=== PATIENT | female | born 1995 | race Two or more races ===

== ENCOUNTER 2017-08-20 12:34 | Emergency (ER) | payer MEDICAID ==
[~2017-08-20] VITALS: Ht 160 cm; Wt 63.5 kg
--- NOTE | 2017-08-20 13:39 | NUR ---
PT IN BED WATCHING TV W/ A VISITOR. PT STATES 7/10 BILATERAL PELVIC PAIN X 2 DAYS. PT STATES USING 7 PADS PER DAY. CURRENTLY WAITING FOR MD CONSULT. WILL CONTINUE TO MONITOR. AWAITING MEDICAL ORDERS.
[2017-08-20] MEDS ORDERED: ACETAMINOPHEN 325 MG TABLET PO ONE (14:11)
[2017-08-20] MEDS ORDERED: IV NS 1000 ML 1,000 ML IV ONE (14:15)
[2017-08-20] MEDS ORDERED: ONDANSETRON IV *ER 4 MG/2 ML VIAL IV ONE (14:15)
[2017-08-20 14:38] LABS: BASOPHILS % (AUTO) 0.4 % (0.0-2.0); EOSINOPHILS # (AUTO) 0.2 K/uL (0.0-0.7); EOSINOPHILS % (AUTO) 1.7 % (0.0-7.0); HEMATOCRIT 37.9 % (31.2-41.9); LYMPHOCYTES # (AUTO) 2.2 K/uL (20.0-40.0); LYMPHOCYTES % (AUTO) 22.9 % (20.5-74.5); MEAN CORPUSCULAR HEMOGLOBIN 32.7 uug (24.7-32.8); MEAN CORPUSCULAR HGB CONC 34 g/dL (32.3-35.6); MEAN CORPUSCULAR VOLUME 94.9 fL (75.5-95.3); MONOCYTES # (AUTO) 0.5 K/uL (2.0-10.0); MONOCYTES % (AUTO) 5.6 % (0-11); NEUTROPHILS # (AUTO) 6.5 K/uL (1.8-8.9); NEUTROPHILS % (AUTO) 69.4 % (31.5-64.5); PLATELET COUNT (AUTO) 275 K/uL (179-408); RED BLOOD CELL COUNT(AUTO) 3.99 MIL/uL (3.63-4.92); WHITE BLOOD COUNT (AUTO) 9.4 K/uL (3.8-11.8)
[2017-08-20 14:40] LABS: CREATININE 0.7 mg/dL (0.6-1.3); POTASSIUM 3.8 mmol/L (3.5-5.1)
[2017-08-20 14:46] LABS: BILIRUBIN,TOTAL 0.3 mg/dL (0.2-1.0); TOTAL PROTEIN, SERUM 7.7 g/dL (6.4-8.2)
[2017-08-20] MEDS ORDERED: ONDANSETRON 4 MG/2 ML VIAL ONE (14:50)
[2017-08-20] MEDS ORDERED: HYDROCODONE/APAP 5-325MG TABLET PO ONE (15:00)
[2017-08-20] MEDS ORDERED: HYDROCODONE/APAP 5-325MG TABLET ONE (15:14)
--- NOTE | 2017-08-20 15:48 | NUR ---
assissted md with vaginal exam, pt tolerated well
--- NOTE | 2017-08-20 16:27 | NUR ---
Patient discharged to home in stable conditon. Written and verbal after care instructions given. Patient verbalizes understanding of instructions.pt walks in steady gait. pt with mother and so. 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
[2017-08-20 16:29] VITALS: BP 109/75
== END 2017-08-20 16:31 | disposition home or self-care (01) ==
LOC: ER 12:34
DX: O03.9 Complete or unspecified spontaneous abortion without complication (principal); J45.909 Unspecified asthma, uncomplicated; Z3A.10 10 weeks gestation of pregnancy
CPT/HCPCS: 36415; 76815; 80053; 84702; 85025; 86900; 86901; 87210; 96361; 96374; 99285; A4663; J2405; J7030

== ENCOUNTER 2018-09-06 04:34 | Emergency (ER) | payer MEDICAID, OTHER ==
[~2018-09-06] VITALS: Ht 160 cm; Wt 59.0 kg
--- NOTE | 2018-09-06 05:21 | NUR ---
DR. DIXON AT BEDSIDE FOR MSE.
[2018-09-06] MEDS ORDERED: CEFTRIAXONE 1 G VIAL ONE (05:28)
[2018-09-06] MEDS ORDERED: HYDROCODONE/APAP 5-325MG TABLET ONE (05:28)
[2018-09-06] MEDS ORDERED: LIDOCAINE HCL 1% 20 ML VIAL ONE (05:28)
[2018-09-06] MEDS ORDERED: HYDROCODONE/APAP 5-325MG TABLET PO ONE (05:30)
[2018-09-06] MEDS ORDERED: CEFTRIAXONE 1 G VIAL IM ONE (05:30)
--- NOTE | 2018-09-06 05:44 | NUR ---
Patient discharged to home in stable conditon. Written and verbal after care instructions given. Patient verbalizes understanding of instructions. PATIENT LEFT WITH STABLE GAIT.
[2018-09-06 05:45] VITALS: BP 113/69
== END 2018-09-06 05:46 | disposition home or self-care (01) ==
LOC: ER 04:37
DX: L03.211 Cellulitis of face (principal); L70.0 Acne vulgaris; J45.909 Unspecified asthma, uncomplicated; F17.200 Nicotine dependence, unspecified, uncomplicated
CPT/HCPCS: 96372; 99283; J0696; J3490; A4663

== ENCOUNTER 2018-10-30 03:55 | Emergency (ER) | payer OTHER ==
[~2018-10-30] VITALS: Ht 160 cm; Wt 65.8 kg
--- NOTE | 2018-10-30 04:00 | NUR ---
Pt. ambulated into ED w/ c/o mid sternal abscess x 2 days, denies F/C/N/V, A/Ox4, RR regular and unlabored, speaks in clear and complete sentences,
--- NOTE | 2018-10-30 04:10 | NUR ---
at bedside for MSE
[2018-10-30] MEDS ORDERED: LIDOCAINE HCL 2% 20 ML VIAL ONE (04:27)
[2018-10-30] MEDS ORDERED: HYDROCODONE/APAP 5-325MG TABLET ONE (04:27)
[2018-10-30] MEDS ORDERED: SULFAMETH/TRIMETH 800/160 MG TABLET ONE (04:28)
[2018-10-30] MEDS ORDERED: CEFTRIAXONE 1 G VIAL ONE (04:28)
[2018-10-30] MEDS ORDERED: SULFAMETH/TRIMETH 800/160 MG TABLET PO ONE (04:30)
[2018-10-30] MEDS ORDERED: HYDROCODONE/APAP 5-325MG TABLET PO ONE (04:30)
[2018-10-30] MEDS ORDERED: CEFTRIAXONE 1 G VIAL IM ONE (04:30)
--- NOTE | 2018-10-30 04:44 | NUR ---
Patient discharged to home in stable conditon. Written and verbal after care instructions given. Patient verbalizes understanding of instructions. Pt. d/c w/ prescription per MD order, d/c papers signed, all belongings w/ pt., ID band removed, ambulated off unit w/ steady gait, instructed not to drive, NAD
== END 2018-10-30 04:46 | disposition home or self-care (01) ==
LOC: ER 03:55
DX: S20.322A Blister (nonthermal) of left front wall of thorax, initial encounter (principal); L03.211 Cellulitis of face; L08.9 Local infection of the skin and subcutaneous tissue, unspecified; J45.909 Unspecified asthma, uncomplicated; F17.200 Nicotine dependence, unspecified, uncomplicated; X58.XXXA Exposure to other specified factors, initial encounter; Y93.89 Activity, other specified; Y92.89 Other specified places as the place of occurrence of the external cause; Y99.8 Other external cause status
CPT/HCPCS: 96372; 99283; J0696; J3490; A4663

== ENCOUNTER 2018-11-21 03:10 | Emergency (ER) | payer OTHER ==
[~2018-11-21] VITALS: Ht 160 cm; Wt 56.7 kg
[2018-11-21] MEDS ORDERED: IPRATROPIUM BROMIDE 0.5 MG/2.5 ML NEBU NEB ONE (03:30)
[2018-11-21] MEDS ORDERED: predniSONE 10 MG TABLET PO ONE (03:30)
[2018-11-21] MEDS ORDERED: ALBUTEROL SULFATE 2.5 MG/3 ML NEBU NEB ONE (03:30)
[2018-11-21] MEDS ORDERED: predniSONE 10 MG TABLET ONE (03:37)
[2018-11-21] MEDS ORDERED: predniSONE 50 MG TABLET ONE (03:38)
[2018-11-21] MEDS ORDERED: ALBUTEROL SULFATE 2.5 MG/3 ML NEBU ONE (03:42)
[2018-11-21] MEDS ORDERED: IPRATROPIUM BROMIDE 0.5 MG/2.5 ML NEBU ONE (03:42)
--- NOTE | 2018-11-21 04:14 | NUR ---
Patient states "I feel better now."
--- NOTE | 2018-11-21 04:17 | NUR ---
Patient discharged to home in stable conditon. Written and verbal after care instructions given. Patient verbalizes understanding of instructions. walked out of ER with no distress noted
[2018-11-21 04:19] VITALS: BP 115/77
== END 2018-11-21 04:19 | disposition home or self-care (01) ==
LOC: ER 03:12
DX: J98.01 Acute bronchospasm (principal); R05 Cough; J45.909 Unspecified asthma, uncomplicated; E11.9 Type 2 diabetes mellitus without complications; F17.290 Nicotine dependence, other tobacco product, uncomplicated; Z71.6 Tobacco abuse counseling
CPT/HCPCS: 71045; 94640; 99283; 99406; J7512 ×2; A4663; J3590